=== PATIENT | female | born 1990 | race Caucasian/White ===

== ENCOUNTER 2017-02-05 14:16 | Outpatient (CLI) | payer MEDICAID ==
[~2017-02-05 14:16] MED LIST: [UNRECOGNIZED DRUG - REMARK] PO
--- NOTE | 2017-02-05 15:02 | RADRPT ---
PROCEDURE: US OB - Limited weight. CLINICAL INDICATION: labor TECHNIQUE: Multiple sonographic images of the pelvis were obtained. Transabdominal imaging only w as performed. The images were reviewed on a PACS workstation. COMPARISON: OB ultrasound 01/11/2017 FINDINGS: There is a single viable intrauterine gestation. Cardiac activity is present with 141 beats per min [place]. There is a cephalic presentation. Measurements were made in order to determine age. The results are as follows: BPD = 5.37 cm HC = 19.13 cm AC = 17.12 cm FL = 3.45 .cm Estimated gestational age of approximately 21 weeks 5 days +/ - 1 week 4 days by ultrasound evaluat ion. The estimated date of delivery is 06/13/2017 by ultrasound. The EFW = 433.3 g +/- 65 g (3.1%). The placenta is posterior. The maximum vertical pocket of amniotic fluid equals 5.0 cm. The cervic al length measures approximately 3.0 cm.. IMPRESSION: 1. Single viable intrauterine gestation of approximately 21 weeks 5 days gestation with a proximal date of delivery of 06/13/2017.. 2. The estimated weight is 433 g (3.1%) . RPTAT: KK .John Fink MD, Date Time Electronically viewed and signed by .John Fink MD, MD on 02/05/2017 15:02 .B/
--- NOTE | 2017-02-05 15:47 | TRIAGE ---
OB Triage Datetime Report Generated by CPN: 02/05/2017 15:47 Datetime: 02/05/2017 15:46 Stage of : OB Triage Maternal Assessment Level of Consciousness: Fully Conscious DTR's/Clonus: DTRs 1+ Headache: Denies Breath Sounds, Left: Clear and Equal Breath Sounds, Right: Clear and Equal Nausea/Vomiting: Denies RUQ Epigastric Pain: Denies Labor Evaluation Frequency: NONE Monitor Mode: External Resting Tone [place]: Relaxed Heart Rate FHR Baseline Rate: 140 Monitor Mode: External US Variability: Moderate 6-25 bpm Accelerations: 15X15 Decelerations: None Category: Category I Pain Assessment Pain Scale: 5 Pain Presence: Constant Pain Type: Ache Pain Location: Abdomen Pain Goal: 3 Vaginal Exam Membrane Status: Intact Datetime: 02/05/2017 15:21 Maternal Assessment Level of Consciousness: Fully Conscious DTR's/Clonus: DTRs 1+ Headache: Denies Blurred Vision: No Respiratory Effort: Unlabored Breath Sounds, Left: Clear and Equal Breath Sounds, Right: Clear and Equal Nausea/Vomiting: Denies RUQ Epigastric Pain: Denies Facial Edema: None Labor Evaluation Frequency: NONE Monitor Mode: External Resting Tone [place]: Relaxed Heart Rate FHR Baseline Rate: 140 Monitor Mode: External US Variability: Moderate 6-25 bpm Accelerations: 15X15 Decelerations: None Category: Category I Pain Assessment Pain Scale: 5 Pain Presence: Constant Pain Type: Ache Pain Location: Abdomen Pain Goal: 3 Pain Assessment Comments: PT STATES THAT THE PAIN IS CONSTANT ON HER LOWER ABDOMEN Vaginal Exam Membrane Status: Intact Datetime: 02/05/2017 14:34 Stage of : OB Triage Labor Evaluation Frequency: NONE Monitor Mode: External Datetime: 02/05/2017 14:26 Heart Rate FHR Baseline Rate: 135 Monitor Mode: Doppler Datetime: 02/05/2017 14:22 EGA: 22.6 Datetime: 02/05/2017 14:20 Assessment Type: Triage Maternal Assessment Level of Consciousness: Fully Conscious DTR's/Clonus: DTRs 2+; No Clonus Headache: Denies Blurred Vision: No Respiratory Effort: Unlabored; Regular Rhythm; Equal Expansion Breath Sounds, Left: Clear and Equal Breath Sounds, Right: Clear and Equal Nausea/Vomiting: Denies RUQ Epigastric Pain: Denies Lower Extremities Edema: None Degree: None Upper Extremities Edema: None Degree: None Facial Edema: None Fall Risk Assessment History of Falling: (0) No Secondary Diagnosis: (0) No Ambulatory Aid: (0) Bedrest/Nurse Assist IV Therapy: (0) No Gait: (0) Normal/Bedrest/Immobile Mental Status: (0) Oriented to Own Ability Fall Score: 0 Fall Risk Score Definition: No Risk: No action required Datetime: 02/05/2017 14:08 Time of Arrival: 02/05/2017 14:08 Arrived By: Ambulatory Arrived From: Office Chief Complaint: PT CAME IN FROM CLINIC DUE TO SEVERE LOWER ABDOMINAL PAIN SINCE 1 WEEK. PT STATES THAT PAIN HAS BEEN CONSTANT AND GETS WORSED WHEN WALKING, SEATTING AND DOING ALL MOVEMENT Movement: Present Contractions: Denies/Absent Rupture of Membranes: Denies Vaginal Bleeding: None Vaginal Discharge: Denies Recent Sexual Intercouse: Denies Abdominal Trauma: Not Applicable Patient Complaints: Other Additional Patient Complaints: NONE Time Provider Notified: 02/05/2017 15:28 Provider Notified: SERAFIN Initial Plan: MONITOR, JUMA, EFW, CERVICAL LENGHT, DOPPLER PT CAME IN WITH PRESCRIPTION
--- NOTE | 2017-02-05 15:55 | PN ---
Date/Time of Note Date/Time of Note DATE: 02/05/17 TIME: 15:49 OB Subjective Subjective Subjective Patient is 26-year-old 5 para 1 at 22+ 6/7 weeks gestation Patient presents with lower abdominal/pelvic pain and pressure She reports positive movement, no vaginal bleeding, no leaking fluid Patient has her care with Dr. Betancourt OB Objective Objective Objective PROCEDURE: US OB - Limited weight. CLINICAL INDICATION: labor TECHNIQUE: Multiple sonographic images of the pelvis were obtained. Transabdominal imaging only was performed. The images were reviewed on a PACS workstation. COMPARISON: OB ultrasound 01/11/2017 FINDINGS: There is a single viable intrauterine gestation. Cardiac activity is present with 141 beats per minute. There is a cephalic presentation. Measurements were made in order to determine age. The results are as follows: BPD = 5.37 cm HC = 19.13 cm AC = 17.12 cm FL = 3.45 .cm Estimated gestational age of approximately 21 weeks 5 days +/ - 1 week 4 days by ultrasound evaluation. The estimated date of delivery is 06/13/2017 by ultrasound. The EFW = 433.3 g +/- 65 g (3.1%). The placenta is posterior. The maximum vertical pocket of amniotic fluid equals 5.0 cm. The cervical length measures approximately 3.0 cm.. IMPRESSION: 1. Single viable intrauterine gestation of approximately 21 weeks 5 days gestation with a proximal date of delivery of 06/13/2017.. 2. The estimated weight is 433 g (3.1%) . RPTAT: KK .John Fink MD, MD Date Time Electronically viewed and signed by .John Fink MD, on 2016 15:02 .B/ CC: TINA BETANCOURT MD HEENT: WNL Heart: Rhythm Normal Lungs: Clear, Equal Abdomen: WNL Extremities: Normal Reflexes: Normal Cervical Dilatation: None Membranes: Intact Heart Rate: 140's Accelerations: Accelerations Present Decelerations: No Decelerations Contractions on Admission: None OB Assessment/Plan Other Assessment: 22+ 6/7 weeks of gestation with pelvic pain/pressure Rule out labor Other plan: Pelvic ultrasound results were discussed with the patient Patient was counseled that she should decrease her working hours and take frequent breaks at work She was encouraged to increase p.o. hydration Patient should follow-up with Dr. Betancourt in 2-3 days IVA WAGGONER MD February 05, 2017 15:55
== END 2017-02-05 15:50 | disposition home or self-care (01) ==
LOC: OBT 14:16 → L-D 14:17 → OBT 15:50
PROVIDERS: ATTEND Obstetrics & Gynecology
DX: O26.892 Other specified pregnancy related conditions, second trimester (principal); R10.30 Lower abdominal pain, unspecified; R10.2 Pelvic and perineal pain; Z3A.22 22 weeks gestation of pregnancy
CPT/HCPCS: 76815; 76817; Z7500; Z7610; G0463

== ENCOUNTER 2017-02-19 13:29 | Outpatient (CLI) | payer MEDICAID ==
[~2017-02-19] VITALS: Ht 154.9 cm; Wt 66.3 kg
[2017-02-19 14:26] VITALS: Ht 154.9 cm; Wt 66.3 kg
[2017-02-19 14:27] VITALS: BP 115/59; PULSE 86; RESP 20
[2017-02-19] MEDS ORDERED: CEPH500C PO (14:33)
[2017-02-19] MEDS ORDERED: PRENAT PO (14:33)
[2017-02-19] MEDS ORDERED: ACETAMINOPHEN 325 MG TAB PO PRN (15:00)
--- NOTE | 2017-02-19 15:20 | RADRPT ---
PROCEDURE: US OB. CLINICAL INDICATION: Low JUMA TECHNIQUE: Transabdominal views of the pelvis are available for review. COMPARISON: Obstetrical ultrasound from 02/05/2017 FINDINGS: The cervix is closed and measures 3.4 cm in length. There is a single intrauterine gestation in a transverse presentation to maternal right. The heart rate is present at 154 bpm. The placenta is posterior. There is no evidence of placenta previa or a placental abruption. The JUMA measures 12.1 cm. RPTAT: AA IMPRESSION: Normal JUMA. Physician Juan Antonio Date Time Electronically viewed and signed by Physician Juan Antonio on 02/19/2017 15:19 RA/
--- NOTE | 2017-02-19 18:00 | TRIAGE ---
OB Triage Datetime Report Generated by CPN: 02/19/2017 18:00 Datetime: 02/19/2017 16:18 Heart Rate FHR Baseline Rate: 130 Monitor Mode: External US FHR Baseline Changes: No Baseline Change Variability: Moderate 6-25 bpm Accelerations: 15X15 Decelerations: None Category: Category I Datetime: 02/19/2017 14:21 Time of Arrival: 02/19/2017 13:45 EGA: 24.6 Arrived By: Ambulatory Arrived From: Dr. Blair Chief Complaint: leaking of fluid x 2 days, a few drops, pain in lower abd making it hard to walk, has every day. Movement: Present Contractions: Denies/Absent Rupture of Membranes: Unsure Vaginal Bleeding: None Vaginal Discharge: Present Recent Sexual Intercouse: Denies Abdominal Trauma: Not Applicable Patient Complaints: Other Time Provider Notified: 02/19/2017 15:00 Provider Notified: citlalli Initial Plan: pt came with rx written by dr lennon for cecy, sse, cl Datetime: 02/19/2017 14:19 Stage of : OB Triage Maternal Assessment Level of Consciousness: Fully Conscious DTR's/Clonus: DTRs 2+; No Clonus Headache: Denies Blurred Vision: No Respiratory Effort: Unlabored; Regular Rhythm; Equal Expansion Breath Sounds, Left: Clear and Equal Breath Sounds, Right: Clear and Equal Nausea/Vomiting: Denies RUQ Epigastric Pain: Denies Facial Edema: None Temperature Route: Axillary Fall Risk Assessment History of Falling: (0) No Secondary Diagnosis: (0) No Ambulatory Aid: (0) Bedrest/Nurse Assist IV Therapy: (0) No Gait: (0) Normal/Bedrest/Immobile Mental Status: (0) Oriented to Own Ability Fall Score: 0 Fall Risk Score Definition: No Risk: No action required Datetime: 02/19/2017 14:08 Labor Evaluation Frequency: 0 Monitor Mode: External Resting Tone [place]: Relaxed Heart Rate FHR Baseline Rate: 140 Monitor Mode: External US FHR Baseline Changes: No Baseline Change Variability: Moderate 6-25 bpm Accelerations: 15X15 Decelerations: None Category: Category I Datetime: 02/05/2017 14:22 EGA: 22.6 Datetime: 02/05/2017 14:20 Fall Score: 0 Fall Risk Score Definition: No Risk: No action required
== END 2017-02-19 18:06 | disposition home or self-care (01) ==
LOC: OBT 13:29 → OBG 13:32 → OBT 18:06
PROVIDERS: ATTEND Obstetrics & Gynecology
DX: O26.892 Other specified pregnancy related conditions, second trimester (principal); O36.8120 Decreased fetal movements, second trimester, not applicable or unspecified; R10.2 Pelvic and perineal pain; Z3A.24 24 weeks gestation of pregnancy
CPT/HCPCS: 76815; 76817; 84112; Z7500; Z7610; G0463

== ENCOUNTER 2017-04-02 19:02 | Outpatient (CLI) | payer MEDICAID ==
[~2017-04-02 19:02] MED LIST changes: +CEPH500C PO; +PRENAT PO
[2017-04-02 19:42] VITALS: BP 111/55; PULSE 96; RESP 18
[2017-04-02 20:06] LABS: ADD UMIC YES; UR ASCORBIC ACID NEGATIVE (NEGATIVE); UR BACTERIA FEW /HPF (NONE SEEN); UR BILIRUBIN (Dip) NEGATIVE (NEGATIVE); UR BLOOD (Dip) NEGATIVE (NEGATIVE); UR CLARITY CLOUDY (CLEAR); UR COLOR AMBER (YELLOW); UR GLUCOSE (Dip) NEGATIVE (NEGATIVE); UR KETONES (Dip) 1+ mg/dL (NEGATIVE); UR LEUKOCYTE ESTERASE (Dip) TRACE Leu/ul (NEGATIVE); UR MUCUS MANY /HPF (NONE SEEN); UR NITRITE (Dip) NEGATIVE (NEGATIVE); UR RBC 1 /HPF (0-5); UR SPECIFIC GRAVITY (Dip) 1.018 (1.003-1.030); UR SQUAMOUS EPITHELIAL CELL FEW /HPF (FEW); UR TOTAL PROTEIN (Dip) NEGATIVE (NEGATIVE); UR UROBILINOGEN (Dip) 2+ mg/dL (NEGATIVE)
--- NOTE | 2017-04-02 21:07 | RADRPT ---
PROCEDURE: Limited OB ultrasound CLINICAL INDICATION: Contractions TECHNIQUE: Limited sonographic evaluation of the gravid uterus was performed to assess the cervica l length COMPARISON: 03/15/2017. FINDINGS: Single live intrauterine with cardiac heart rate of 143 beats per minute is identifi ed. Fetus is in a cephalic presentation. Cervix measures 4.07 cm in length and is closed. Placenta is posterior. IMPRESSION: Single live intrauterine with a cervical length of 4.07 cm. RPTAT: HMVK .Lloyd Holguin MD, Date Time Electronically viewed and signed by .Lloyd Holguin MD, on 04/02/2017 21:07 .K/
--- NOTE | 2017-04-02 22:49 | RADRPT ---
PROCEDURE: OB ultrasound for biophysical profile CLINICAL INDICATION: Biophysical profile. . TECHNIQUE: Multiple sonographic images of the pelvis were obtained. Transabdominal views are obta ined. COMPARISON: 03/15/2017 FINDINGS: Single intrauterine gestation. Presentation: Cephalic. Placenta: Posterior No evidence of placental abruption. No evidence of placenta previa. breathing movement = 2/2 tone = 2/2 motion = 2/2 JUMA = 2/2 JUMA = 10.1 cm heart rate: 144 beats per minute IMPRESSION: Single intrauterine gestation. Biophysical profile 04/24 RPTAT: AADD .Sean Gutierrez MD, MD Date Time Electronically viewed and signed by .Sean Gutierrez MD, on 04/02/2017 22:49 .B/
--- NOTE | 2017-04-03 00:48 | TRIAGE ---
OB Triage Datetime Report Generated by CPN: 04/03/2017 00:48 Datetime: 04/02/2017 22:52 Labor Evaluation Frequency: 0 Monitor Mode: External Heart Rate FHR Baseline Rate: 145 Monitor Mode: External US FHR Baseline Changes: No Baseline Change Variability: Moderate 6-25 bpm Accelerations: 15X15 Decelerations: None Category: Category I Datetime: 04/02/2017 22:00 Labor Evaluation Frequency: 0 Monitor Mode: External Heart Rate FHR Baseline Rate: 145 Monitor Mode: External US FHR Baseline Changes: No Baseline Change Variability: Moderate 6-25 bpm Accelerations: 15X15 Decelerations: None Category: Category I Datetime: 04/02/2017 21:52 Stage of : OB Triage Datetime: 04/02/2017 21:00 Labor Evaluation Frequency: 0 Monitor Mode: External Heart Rate FHR Baseline Rate: 135 Monitor Mode: External US FHR Baseline Changes: No Baseline Change Variability: Moderate 6-25 bpm Accelerations: 15X15 Decelerations: None Category: Category I Datetime: 04/02/2017 20:49 Labor Evaluation Frequency: 0 Monitor Mode: External Heart Rate FHR Baseline Rate: 145 Monitor Mode: External US FHR Baseline Changes: No Baseline Change Variability: Moderate 6-25 bpm Accelerations: 15X15 Decelerations: None Category: Category I Datetime: 04/02/2017 20:00 Labor Evaluation Frequency: 0 Monitor Mode: External Heart Rate FHR Baseline Rate: 145 Monitor Mode: External US FHR Baseline Changes: No Baseline Change Variability: Moderate 6-25 bpm Accelerations: 15X15 Decelerations: Variable Category: Category I Datetime: 04/02/2017 19:55 Vaginal Exam Dilatation (cms): 0.0 Effacement (%): 0 Station: -3 Exam By: Lexi FRANCO RN Vaginal Bleeding: None Cervix, Consistency: Firm Cervix, Position: Posterior Datetime: 04/02/2017 19:15 Stage of : OB Triage Time of Arrival: 04/02/2017 18:50 EGA: 30.6 Arrived By: Wheelchair Arrived From: Home Chief Complaint: PELVIC PAIN Movement: Present Contractions: Irregular Time Contractions Began: 04/02/2017 08:00 Rupture of Membranes: Denies Vaginal Discharge: Denies Recent Sexual Intercouse: Denies Abdominal Trauma: Not Applicable Patient Complaints: None Time Provider Notified: 04/02/2017 20:03 Provider Notified: SERAFIN Initial Plan: CALL JAIRO ESQUIVEL Maternal Assessment Level of Consciousness: Fully Conscious DTR's/Clonus: DTRs 2+; No Clonus Headache: Denies Blurred Vision: No Respiratory Effort: Unlabored; Regular Rhythm; Equal Expansion Breath Sounds, Left: Clear and Equal Breath Sounds, Right: Clear and Equal Nausea/Vomiting: Denies RUQ Epigastric Pain: Denies Lower Extremities Edema: None Degree: None Upper Extremities Edema: None Degree: None Facial Edema: None Temperature Route: Oral Fall Risk Assessment History of Falling: (0) No Secondary Diagnosis: (0) No Ambulatory Aid: (0) Bedrest/Nurse Assist IV Therapy: (0) No Gait: (0) Normal/Bedrest/Immobile Mental Status: (0) Oriented to Own Ability Fall Score: 0 Fall Risk Score Definition: No Risk: No action required Monitor Mode: External Monitor Mode: External US Pain Assessment Pain Scale: 8 Pain Presence: Intermittent Pain Type: Contraction Pain Location: Abdomen Datetime: 04/02/2017 19:10 EGA: 24.6 Datetime: 02/19/2017 14:21 EGA: 24.6 Datetime: 02/19/2017 14:19 Fall Score: 0 Fall Risk Score Definition: No Risk: No action required Datetime: 02/05/2017 14:22 EGA: 22.6 Datetime: 02/05/2017 14:20 Fall Score: 0 Fall Risk Score Definition: No Risk: No action required
--- NOTE | 2017-04-03 06:22 | PN ---
Triage Information Date/Time Weeks of Gestation 27 Year-old with SIUP at 30 6/7 wks presents with a chief complaint of pelvic pain. She has been receiving her care with Dr. Ruiz. She states good movement. She denies nausea, vomiting, shortness of breath, chest pain, headache, visual changes, vaginal bleeding or LOF. : 5 Para: 1 Diabetes: none Hypertention: none Objective Vital Signs Date Time Temp Pulse Resp B/P Pulse Ox O2 Delivery O2 Flow Rate FiO2 04/02/17 19:42 98.0 96 18 111/55 Heart Rate: 140's Contractions: None Exam General: Patient appears well, alert and oriented, NAD, appropriate mood and affect ABD: gravid, soft, non-tender. Back: No CVA tenderness (B/L) LE: No clubbing, cyanosis, edema, thigh or calf tenderness bilaterally FHT: 140 bpm , moderate variability with acceleration, few 10-15 sec variable deceleration, still at the range of nml FHR. Contractions: None Results/Medications Results 24 hrs Laboratory Tests Test 04/02/17 19:00 04/02/17 19:55 Urine Color KWESI Urine Clarity CLOUDY A Urine pH 6.0 Urine Specific [place] 1.018 Urine Ketones 1+ H Urine Nitrite NEGATIVE Urine Bilirubin NEGATIVE Urine Urobilinogen 2+ H Urine Leukocyte Esterase TRACE A Urine Microscopic RBC 1 Urine Microscopic WBC 2 Urine Squamous Epithelial Cells FEW Urine Bacteria FEW A Urine Mucus MANY A Urine Hemoglobin NEGATIVE Urine Glucose NEGATIVE Urine Total Protein NEGATIVE Fibronectin NEGATIVE Assessment/Plan 27 Year-old with SIUP at 30 6/7 wks presents with pelvic pain. Exam is unremarkable. There were few 10-15 sec variable deceleration, still at the range of nml FHR. She was observed for another hr, no further decle. Reactive NST. US performed, nml OB us with BPP: 04/24. CL: 4.07, neg FFN. Symptoms and sign of labor, preeclampsia, kick count discussed with patient, she voiced understanding. All of her questions answered. Patient was discharged home in stable condition with the appropriate discharge instructions provided. I strongly recommend back tomorrow for another NST. OLVIN MORA Apr 03, 2017 06:22
== END 2017-04-02 22:59 | disposition home or self-care (01) ==
LOC: OBT 19:02 → L-D 19:02 → OBT 22:59
PROVIDERS: ATTEND Obstetrics & Gynecology
DX: O26.893 Other specified pregnancy related conditions, third trimester (principal); Z3A.30 30 weeks gestation of pregnancy; R10.2 Pelvic and perineal pain
CPT/HCPCS: 76817; 76818; 81001; 82731; 87086; Z7500; G0463

== ENCOUNTER 2017-04-03 14:41 | Outpatient (CLI) | payer MEDICAID ==
[~2017-04-03 14:41] MED LIST changes: -CEPH500C PO; -[UNRECOGNIZED DRUG - REMARK] PO
--- NOTE | 2017-04-03 16:11 | RADRPT ---
PROCEDURE: US OB biophysical profile. CLINICAL INDICATION: evaluation TECHNIQUE: Multiple sonographic images of the pelvis were obtained. The images were reviewed on a PACS workstation. COMPARISON: Obstetrical ultrasound from 04/02/2017 FINDINGS: There is a single viable intrauterine gestation. Cardiac activity is present with 150 beats per min [place]. There is a vertex presentation. The placenta is posterior. There is no evidence of placental abruption. There is a normal amount of amniotic fluid with an JUMA = 12.6 cm. Biophysical profile: movement 2/2 tone 2/2. breathing 2/2 JUMA 2/2 Total 04/24 RPTAT: AA . IMPRESSION: Normal biophysical profile. Physician Juan Antonio Date Time Electronically viewed and signed by Physician Juan Antonio on 04/03/2017 16:11 /
[2017-04-03 17:26] LABS: ADD UMIC NO; UR ASCORBIC ACID NEGATIVE (NEGATIVE); UR BACTERIA FEW /HPF (NONE SEEN); UR BILIRUBIN (Dip) NEGATIVE (NEGATIVE); UR BLOOD (Dip) NEGATIVE (NEGATIVE); UR CLARITY SLIGHTLY CLOUDY (CLEAR); UR COLOR YELLOW (YELLOW); UR GLUCOSE (Dip) 1+ mg/dL (NEGATIVE); UR KETONES (Dip) NEGATIVE (NEGATIVE); UR LEUKOCYTE ESTERASE (Dip) NEGATIVE Leu/ul (NEGATIVE); UR MUCUS FEW /HPF (NONE SEEN); UR NITRITE (Dip) NEGATIVE (NEGATIVE); UR RBC 1 /HPF (0-5); UR SPECIFIC GRAVITY (Dip) 1.011 (1.003-1.030); UR TOTAL PROTEIN (Dip) NEGATIVE (NEGATIVE); UR UROBILINOGEN (Dip) 2+ mg/dL (NEGATIVE)
[2017-04-03 17:28] LABS: ADD SCAN DIFF NO
[2017-04-03 17:36] LABS: BASOPHILS % 0.3 % (0.0-2.0); EOSINOPHILS # 0.1 10^3/ul (0.0-0.5); EOSINOPHILS % 0.7 % (0.0-7.0); HEMATOCRIT 31.5 % (37.0-47.0); HEMOGLOBIN 10.6 g/dl (12.0-16.0); LYMPHOCYTES # 1.2 10^3/ul (0.8-2.9); LYMPHOCYTES % 16.9 % (15.0-51.0); MEAN CORPUSCULAR HEMOGLOBIN 30.6 pg (29.0-33.0); MEAN CORPUSCULAR HGB CONC 33.7 g/dl (32.0-37.0); MEAN PLATELET VOLUME 11.2 fl (7.4-10.4); MONOCYTE # 0.6 10^3/ul (0.3-0.9); MONOCYTES % 7.7 % (0.0-11.0); NEUTROPHIL # 5.2 10^3/ul (1.6-7.5); NEUTROPHILS % 73.6 % (39.0-77.0); PLATELET COUNT 240 10^3/UL (140-415); RED BLOOD COUNT 3.46 10^6/ul (4.20-5.40); WHITE BLOOD COUNT 7.1 10^3/ul (4.8-10.8)
--- NOTE | 2017-04-03 19:27 | CONS ---
Date/Time of Note Date/Time of Note DATE: 04/03/17 TIME: 19:19 Consultation Date/Type/Reason Admit Date/Time April 03, 2070 Obstetrical triage consult Reason for Consultation This patient is a 27 years old 5 para 1, therapeutic 1 spontaneous 3 living 1 whose estimated date of confinement is 2016 which makes her 31 weeks . She came to OB triage complaining of a pelvic pain and cramping since morning On examination, she is a well-developed well-nourished lady about 31 weeks. Her course was fairly on eventful except for the abdominal pain that she had yesterday. Her blood type a Rh+ hepatitis B surface antigen neg , her , RPR, HIV ,gonorrhea, chlamydia were old negative. On examination. her general vital signs are basically normal with blood pressure 106/54. Pulse rate 102 respiration 18.. Temperature 98.2. And the oxygen saturation was 95 per cent in room temperature. On physical exam her abdomen is soft . Very rare contractions, heart tone as I mentioned is normal no decelerations, On pelvic examination her cervix was closed long and -3 station with intact membranes Laboratory Tests Test 04/03/17 16:30 04/03/17 17:17 Urine Color YELLOW Urine Clarity SLIGHTLY CLOUDY Urine pH 7.0 Urine Specific [place] 1.011 Urine Ketones NEGATIVEmg/dL Urine Nitrite NEGATIVEmg/dL Urine Bilirubin NEGATIVEmg/dL Urine Urobilinogen 2+mg/dL Urine Leukocyte Esterase NEGATIVELeu/ul Urine Microscopic RBC 1/HPF Urine Microscopic WBC 1/HPF Urine Bacteria FEW/HPF Urine Mucus FEW/HPF Urine Hemoglobin NEGATIVEmg/dL Urine Glucose 1+mg/dL Urine Total Protein NEGATIVEmg/dl White Blood Count 7.110^3/ul Red Blood Count 3.4610^6/ul Hemoglobin 10.6g/dl Hematocrit 31.5% Mean Corpuscular Volume 91.0fl Mean Corpuscular Hemoglobin 30.6pg Mean Corpuscular Hemoglobin Concent 33.7g/dl Red Cell Distribution Width 12.0% Platelet Count 83741^3/UL Mean Platelet Volume 11.2fl Neutrophils % 73.6% Lymphocytes % 16.9% Monocytes % 7.7% Eosinophils % 0.7% Basophils % 0.3% Nucleated Red Blood Cells % 0.0/100WBC Neutrophils # 5.210^3/ul Lymphocytes # 1.210^3/ul Monocytes # 0.610^3/ul Eosinophils # 0.110^3/ul Basophils # 0.010^3/ul Nucleated Red Blood Cells # 0.010^3/ul Constitutional: No chills, No diaphoresis, No disoriented, No febrile, No improved, No no complaints, No other, No poor po, No requiring IVF, No requiring O2 Eyes: No discharge, No no complaints, No other, No pain, No redness, No visual change ENT: No bleeding, No congestion, No discharge, No dysphagia, No no complaints, No other, No pain, No sore throat Respiratory: No cough, No no complaints, No other, No pain, No pleuritic pain, No shortness of breath, No sputum, No wheezing Cardiovascular: No chest pain, No edema, No lightheadedness, No no complaints, No orthopenea, No other, No palpitations, No paroxysmal nocturnal dyspnea Gastrointestinal: No blood, No constipation, No decreased appetite, No diarrhea , No flatus, No nausea, No no complaints, No other, No pain, No passing stool, No vomiting Genitourinary: other (As I mentioned on pelvic examination the cervix was closed and was long and -3 station of the head intact membranes), No bleeding, No discharge, No dysuria, No flank pain, No hematuria, No no complaints Musculoskeletal: No back pain, No bone/joint pain, No neck pain, No no complaints, No other, No restricted range of motion, No swelling Skin: No bruising, No erythema, No laceration, No no complaints, No other, No pruritis, No rash, No skin lesions Neurologic: other (Knee-jerk reflexes normal), No confusion, No dizziness, No focal-weakness, No headache, No no complaints , No seizure, No syncope Endocrine: No dry skin, No no complaints, No other, No polydypsia, No polyuria , No temp intolerance Lymphatic: adenopathy, lymphadema, no complaints, other, tender nodes Additional Comments On lab studies CBC was basically normal ,except for slight anemia ; hemoglobin 10.6 hematocrit 31.5, WBC was normal differential count normal . she had an ultrasound study; the biophysical profile was reported to the 04/24 with amniotic fluid index of 12.6 cm With these patient was discharged home to be followed in the office Exam/Review of Systems Results Result Diagram: 04/03/17 1717 Results 24 hrs Laboratory Tests Test 04/03/17 16:30 04/03/17 17:17 Urine Color YELLOW Urine Clarity SLIGHTLY CLOUDY A Urine pH 7.0 Urine Specific [place] 1.011 Urine Ketones NEGATIVE Urine Nitrite NEGATIVE Urine Bilirubin NEGATIVE Urine Urobilinogen 2+ H Urine Leukocyte Esterase NEGATIVE Urine Microscopic RBC 1 Urine Microscopic WBC 1 Urine Bacteria FEW A Urine Mucus FEW A Urine Hemoglobin NEGATIVE Urine Glucose 1+ H Urine Total Protein NEGATIVE White Blood Count 7.1 Red Blood Count 3.46 L Hemoglobin 10.6 L Hematocrit 31.5 L Mean Corpuscular Volume 91.0 Mean Corpuscular Hemoglobin 30.6 Mean Corpuscular Hemoglobin Concent 33.7 Red Cell Distribution Width 12.0 Platelet Count 240 Mean Platelet Volume 11.2 H Neutrophils % 73.6 Lymphocytes % 16.9 Monocytes % 7.7 Eosinophils % 0.7 Basophils % 0.3 Nucleated Red Blood Cells % 0.0 Neutrophils # 5.2 Lymphocytes # 1.2 Monocytes # 0.6 Eosinophils # 0.1 Basophils # 0.0 Nucleated Red Blood Cells # 0.0 TRINITY CHATMAN MD Apr 03, 2017 19:27
--- NOTE | 2017-04-04 07:40 | TRIAGE ---
OB Triage Datetime Report Generated by CPN: 04/04/2017 07:40 Datetime: 04/03/2017 18:31 Labor Evaluation Frequency: IRREG Monitor Mode: External Duration (sec)2399: 50-80 Quality: Mild Pattern: Normal: <= 5 Contractions in 10 Minutes Resting Tone [place]: Relaxed Heart Rate FHR Baseline Rate: 145 Monitor Mode: External US Variability: Moderate 6-25 bpm Accelerations: 15X15 Decelerations: None Category: Category I Vaginal Exam Dilatation (cms): 0.0 Effacement (%): 0 Station: -3 Exam By: DR. FOROOHAR Datetime: 04/03/2017 17:31 Labor Evaluation Frequency: 0 Monitor Mode: External Duration (sec)2399: 0 Resting Tone [place]: Relaxed Heart Rate FHR Baseline Rate: 145 Monitor Mode: External US Variability: Moderate 6-25 bpm Accelerations: 15X15 Decelerations: None Category: Category I Datetime: 04/03/2017 16:18 Labor Evaluation Frequency: 0 Monitor Mode: External Duration (sec)2399: 0 Resting Tone [place]: Relaxed Heart Rate FHR Baseline Rate: 135 Monitor Mode: External US Variability: Moderate 6-25 bpm Accelerations: 15X15 Decelerations: None Category: Category I Comments: NST REACTIVE FOR GESTATIONAL AGE Datetime: 04/02/2017 22:50 Time of Arrival: 04/03/2017 15:28 EGA: 31.0 Arrived By: Ambulatory Arrived From: Home Chief Complaint: PELVIC PAIN Movement: Present Contractions: Denies/Absent Rupture of Membranes: Denies Vaginal Bleeding: None Vaginal Discharge: Denies Recent Sexual Intercouse: Denies Patient Complaints: Other Additional Patient Complaints: PELVIC PAIN Time Provider Notified: 04/03/2017 16:10 Provider Notified: DELSHAD Initial Plan: BPP , NST CALL MD Datetime: 04/02/2017 19:15 EGA: 30.6 Fall Risk Assessment Fall Score: 0 Fall Risk Score Definition: No Risk: No action required Datetime: 04/02/2017 19:10 EGA: 24.6 Datetime: 02/19/2017 14:21 EGA: 24.6 Datetime: 02/19/2017 14:19 Fall Risk Assessment Fall Score: 0 Fall Risk Score Definition: No Risk: No action required Datetime: 02/05/2017 14:22 EGA: 22.6 Datetime: 02/05/2017 14:20 Fall Risk Assessment Fall Score: 0 Fall Risk Score Definition: No Risk: No action required
== END 2017-04-03 19:02 | disposition home or self-care (01) ==
LOC: OBT 14:41 → L-D 14:43 → OBT 19:02
PROVIDERS: ATTEND Obstetrics & Gynecology
DX: O26.893 Other specified pregnancy related conditions, third trimester (principal); Z3A.31 31 weeks gestation of pregnancy
CPT/HCPCS: 36415; 76818; 81001; 85025; Z7500; 81003; G0463